=== PATIENT | male | born 1985 | race Caucasian/White ===

== ENCOUNTER 2022-11-30 07:04 | Outpatient (CLI) | payer BC, SELFPAY ==
--- NOTE | 2022-11-30 07:15 | MR_ITS ---
[facility] [address] [facility] [address] Phone:?[phone] Fax:?[phone] Referring Physician Information: Mary Wilde M.D. [id number] [address] Phone:?[phone] Fax:?[phone] Patient:?Hussein Kearns D.O.B:?1985 Sex:?Male Phone:?[phone] [facility] MRN:?[id number] Exam Date:?11/30/2022 EXAM: MRI EXAMINATION OF THE RIGHT ELBOW CLINICAL INFORMATION: Right elbow pain. Concern for possible tendon rupture. TECHNICAL INFORMATION: Coronal STIR. Axial, sagittal and coronal PD and T2- weighted images were acquired. INTERPRETATION: Bones, joint and osteochondral surfaces: No significant elbow joint effusion. No discrete loose body is seen. No evidence for an occult fracture or osseous contusion. No discrete osteochondral lesion is seen. There are no appreciable changes of elbow joint osteoarthritis. No other abnormal marrow edema pattern identified. Tendons: The brachialis and triceps tendon insertions are seen to be intact. Acute or subacute appearance of disruption of the expected biceps brachii tendon insertion. As seen on series 7 image 9 as well as series 3 images 10 through 16, the torn tendon fibers are retracted into a position 1.5 cm distal to the level of the elbow joint line. Moderate soft tissue fluid and edema signal to indicate associated hemorrhage and inflammation. The common flexor origin at the medial humeral epicondyle is intact. The common extensor origin at the lateral humeral epicondyle is intact without tear or significant tendinopathy. Ligaments: The ulnar collateral ligament is intact without evidence of acute sprain or tear. The radial collateral and lateral ulnar collateral ligaments appear grossly intact. Nerves: The ulnar nerve appears unremarkable coursing past the elbow and through the cubital tunnel. CONCLUSION: 1. Acute or subacute injury and full-thickness disruption of the expected insertion of the biceps brachii tendon. Torn tendon fibers are retracted into a position 1.5 cm distal to the level of the elbow joint line. Associated moderate soft tissue hemorrhage and inflammation. 2. No occult fracture, osseous contusion or osteochondral lesion. 3. No joint effusion or loose body. 4. No other evidence for tendon pathology. KES Electronically signed on 11/30/2022 1:26:00 PM by Paras Junior M.D.
== END 2022-11-30 07:05 | disposition home or self-care (01) ==
LOC: MRI 07:07
PROVIDERS: PCP Physician Assistant Medical; Visit Provider Emergency Medicine
DX: M25.521 Pain in right elbow (principal)
CPT/HCPCS: 73221

== ENCOUNTER 2022-12-07 06:11 | Day surgery (SDC) | payer BC, SELFPAY ==
[2022-12-07] VITALS (8 sets, daily range): BP systolic 101–135; BP diastolic 73–88; PULSE 66–77; RESP 16; TEMP 36.1–36.7; O2SAT 94–97; BMI 46.3
[2022-12-07] MEDS: LACTATED RINGERS 1000 ML 1,000 ML 100 ML IV ×2 (06:30→08:00)
[2022-12-07] MEDS: SODIUM CHLORIDE 0.9 % (FLUSH) 10 ML SYRINGE IVF (07:10)
[2022-12-07] MEDS: fentaNYL 100 MCG/2 ML inj IVP (07:30)
[2022-12-07] MEDS: MIDAZOLAM HCL 1 MG/ML inj IVP (07:30)
--- NOTE | 2022-12-07 07:30 | W.PM.H&PU ---
History & Physical Update History & Physical Update H&P Reviewed and patient assessed: No changes noted
--- NOTE | 2022-12-07 07:37 | SUR.PREOP ---
TIME?OUT:?0729 PT/RN/MDA?VERIFICATION?OF?SURGICAL?SITE,?PROCEDURE,?AND?CONSENT OBTAINED?PRIOR?TO?INVASIVE?PROCEDURE.
[2022-12-07] MEDS: CEFAZOLIN 2 GM INJ IVP (07:40)
--- NOTE | 2022-12-07 07:52 | CRLHL7_ITS ---
For Patients: As a result of the Century Cures Act, medical imaging exams and procedure reports are released immediately into your electronic medical record. You may view this report before your referring provider. If you have questions, please contact your health care provider. INDICATION: Right distal biceps repair. TECHNIQUE: Fluoroscopically guided intraoperative evaluation of the right elbow. FINDINGS: Two portable intraoperative images of the right elbow were performed. Postsurgical change proximal radius. 5.5 seconds fluoroscopy time utilized. IMPRESSION: 5.5 seconds fluoroscopy time utilized intraoperatively. Dictated by Corbin Laughlin MD @ 12/07/2022 9:40:54 AM (Electronically Signed)
--- NOTE | 2022-12-07 08:04 | W.PM.NB ---
Nerve Block Nerve Block Time Seen by Provider: 07:30 Date Seen: 12/07/22 Type of block requested by surgeon for post-operative analgesia: axillary Side: right Time out performed: Yes Verification of patient name: Yes Verification of date of : Yes Site marking: site marked Name of person performing procedure: Romulo Continuous monitoring Was continuous monitoring of O2 sat, B/P, monitor car operator, recorded every 15 minutes?: Yes Procedure Checklist: sterile prep, needles and gloves Ultrasound guided. Images saved: Yes Medications given in 5ml increments after negative aspiration: Ropivicaine %: 0.5 mL: 30 Needle gauge: 22 Patient tolerated procedure well: Yes Additional comments: Needle noted adjacent to nerve Block Charges Block Charge (with Pro Fee): Brachial Plexus Use of Ultrasound Machine for Block: Yes- US Guidance/pain block
--- NOTE | 2022-12-07 08:04 | W.ANESCHARGE ---
Anesthesia Charges Start Date/Time Anesthesia Start Date: 12/07/22 Anesthesia Start Time: 07:35 Stop Date/Time Anesthesia Stop Date: 12/07/22 Anesthesia Stop Time: 09:25
--- NOTE | 2022-12-07 09:11 | P.ORPRC_ITS ---
Procedure Note Date of procedure: 12/07/22 Procedure: PREOPERATIVE DIAGNOSIS: 1. Right distal biceps rupture POSTOPERATIVE DIAGNOSIS: 1. Right distal biceps rupture PROCEDURE: 1. Right distal biceps repair SURGEON: Bunny Reyes MD. SIGNAL OPERATOR TECHNICAL: MARIO Carrillo - Of note, an assistant men's lacrosse coach was critical for this case to aid in patient positioning, tissue retraction, limb manipulation/positioning, and closure. ANESTHESIA: General anesthetic IMPLANTS: Arthrex biceps button implant and a 7 mm x 10 mm peek tenodesis screw TOURNIQUET: 0 minutes ESTIMATED BLOOD LOSS: < 5 mL COMPLICATIONS: None evident INDICATIONS: The patient is a pleasant 37-year-old male who sustained two injuries to his distal biceps tendon over the past month. He subsequent MRI which revealed an acute/subacute distal biceps disruption. Distal biceps was noted to be retracted approximately 1.5 cm. Recommendation was subsequently made for surgical repair to restore function of the biceps. Prior to surgery risks and benefits of procedure discussed with patient all questions were answered and informed consent was obtained. DESCRIPTION OF PROCEDURE: Following a thorough discussion of risks, benefits, and alternatives consent was obtained and the operative site was marked. The patient was brought to the operating room and placed supine on the operating table. Induction of anesthesia was undertaken. IV Ancef was administered within 1 hr of incision preoperatively for prophylaxis. A tourniquet was placed on the patient's right upper arm but was not utilized during the course of procedure. Right upper extremity is then prepped and draped in usual sterile fashion. A surgical time-out was performed confirming patient identity surgical site and surgical procedure. Longitudinal incision measuring 3-4 cm was made on the proximal volar forearm distal to the elbow flexion crease along the ulnar border of the brachioradialis. Blunt dissection was used to dissect through the subcutaneous tissues. Electrocautery was used to achieve hemostasis. The distal biceps tendon was identified and was dissected away from surrounding soft tissues. The end of the tendon was debrided. A #2 FiberLoop suture was then used to whipstitch the distal end of the biceps tendon. After whipstitch was complete, the tendon was able to pass through the 7 mm sizing block. Elbow was then placed in full extension and full supination. Deep dissection was used to expose the radial tuberosity. Radial tuberosity was identified and cleared of soft tissue. A 3.2 mm bicortical tunnel was drilled in the radial tuberosity. Prior to drilling, fluoroscopic imaging was used to confirm drill placement in the radial tuberosity. An 8 mm unicortical tunnel was then drilled over the 3.2 mm guide pin. Guide pin and Reamer were removed. Wound was irrigated with normal saline and bone debris was removed. Sutures were then passed through the biceps button implant. The button commission for the blind director was used to pass the implant through both cortices of the radial tuberosity and button was flipped and seated on the cortical bone. Fluoroscopic imaging was used to confirm button deployment. Suture ends were then tensioned docking the tendon into the unicortical tunnel. Once the tendon was fully seated, a [employer] suture Passer was used to pass 1 limb of suture through the tendon, and a knot was tied. A 7 mm by 10 mm peek tenodesis screw was loaded over 1 suture limb and was inserted on the radial side of the bone tunnel. Once the tenodesis screw was fully seated, sutures were tied over the top of the screw and remnant suture was cut and removed. Final fluoroscopic images were obtained confirming anatomic location of the biceps button. Wound was again irrigated with normal saline. Wound was then closed with 2-0 Vicryl, 2-0 Stratafix, and 4-0 Stratafix suture followed by Exofin. Sterile dressings were applied followed by a well-padded long-arm posterior splint. Patient was awoken from anesthesia and transferred to the PACU in stable condition. POSTOPERATIVE PLAN: 1. No lifting, pushing, or pulling with the right upper extremity 2. Keep splint clean and dry, wear sling when ambulating as needed for comfort 3. Ice and elevation for pain and swelling 4. [place] or [id number] pain medications as needed for pain control. 5. Follow-up in Orthopedic Clinic in 10-14 days for wound check and splint removal. 6. Will initiate formal physical therapy per the distal biceps tendon repair rehabilitation protocol in 2 weeks.
--- NOTE | 2022-12-07 09:25 | W.ANESCHARGE ---
Anesthesia Charges Start Date/Time Anesthesia Start Date: 12/07/22 Anesthesia Start Time: 07:35 Stop Date/Time Anesthesia Stop Date: 12/07/22 Anesthesia Stop Time: 09:25
== END 2022-12-07 11:12 | disposition home or self-care (01) ==
PROVIDERS: PCP Physician Assistant Medical; Visit Provider Orthopaedic Surgery
PROC: (CPT 24341; principal; 2022-12-07 07:30)
DX: S46.211A Strain of muscle, fascia and tendon of other parts of biceps, right arm, initial encounter (principal); G89.18 Other acute postprocedural pain
CPT/HCPCS: 24341; 01716; 64415; 73070; 76942; A4580; C1713; J0690; J1100; J1885; J2250; J2405; J2704; J2795; J3010; J3490; J7120

== ENCOUNTER 2023-06-07 08:15 | Outpatient (RCR) | payer BC, SELFPAY | END 2023-09-06 11:34 | disposition home or self-care (01) | PROVIDERS: PCP Physician Assistant Medical; Visit Provider Orthopaedic Surgery | DX: S46.211A Strain of muscle, fascia and tendon of other parts of biceps, right arm, initial encounter (principal); Z98.890 Other specified postprocedural states; M25.521 Pain in right elbow; Z74.09 Other reduced mobility; Z51.89 Encounter for other specified aftercare | CPT/HCPCS: 97110; 97140; 97162 ==

== ENCOUNTER 2024-02-06 09:25 | Outpatient (CLI) | payer BC, SELFPAY | END 2024-02-06 09:26 | disposition home or self-care (01) | LOC: NFLDREF 02-09 07:01 | PROVIDERS: PCP Physician Assistant Medical; Referring Provider Physician Assistant Medical; Visit Provider Physician Assistant Medical | DX: Z00.00 Encounter for general adult medical examination without abnormal findings (principal); R73.03 Prediabetes; I10 Essential (primary) hypertension; L71.9 Rosacea, unspecified; E55.9 Vitamin D deficiency, unspecified; E66.9 Obesity, unspecified; Z13.1 Encounter for screening for diabetes mellitus; Z13.6 Encounter for screening for cardiovascular disorders | CPT/HCPCS: 80053; 80061 ==

== ENCOUNTER 2024-08-05 08:45 | Outpatient (CLI) | payer BC, SELFPAY | END 2024-08-05 08:46 | disposition home or self-care (01) | PROVIDERS: PCP Physician Assistant Medical; Visit Provider Physician Assistant Medical | DX: I10 Essential (primary) hypertension (principal); E55.9 Vitamin D deficiency, unspecified; R73.03 Prediabetes; E66.01 Morbid (severe) obesity due to excess calories; R74.01 Elevation of levels of liver transaminase levels | CPT/HCPCS: 80053; 82306 ==

== ENCOUNTER 2024-08-28 08:03 | Outpatient (CLI) | payer BC, SELFPAY ==
--- NOTE | 2024-08-28 08:15 | MR_ITS ---
EXAM: MRI of the RIGHT KNEE, without contrast CLINICAL HISTORY: Ongoing right knee pain. Evaluate for medial meniscal tear and pes anserine bursitis. Plain radiographs 08/20/2024. COMPARISONS: None available. TECHNICAL: MR sequences of the right knee: sagittals: PD, T2 FS coronals: PD, STIR, T2 axials: PD, T2 FS CONTRAST: None SEDATION: None FINDINGS: Patellofemoral joint: Cartilage: Intact. Retinacula: The medial and lateral retinacula are intact. Fat pads: The infrapatellar, quadriceps, and prefemoral fat pads are unremarkable. Knee joint: Effusion: Trace right knee joint effusion. Popliteal cyst: None. Intra-articular bodies: None. Posteromedial corner: The semimembranosus and pes anserine tendons are intact. Medial compartment: Medial meniscus: 1.0 cm ill-defined free edge and inferiorly surfacing tear from the body through body/posterior horn junction of the medial meniscus with associated marked reactive bone marrow edema within the adjacent portion of the medial tibial plateau. Cartilage: Intact. Lateral compartment: Lateral meniscus: Intact. Cartilage: Intact. Ligaments: Anterior cruciate ligament: Intact. Posterior cruciate ligament: Intact. Medial collateral ligament: Intact. Posterior oblique ligament: Intact. Fibular collateral ligament: Intact. Posterolateral corner: The distal biceps femoris tendon, iliotibial band, popliteus tendon, popliteus muscle, popliteofibular ligament, and arcuate ligament are intact. Extensor mechanism: Patellar tendon: Intact. Quadriceps tendon: Intact. IMPRESSION: 1. 1.0 cm ill-defined free edge and inferiorly surfacing tear from the body through body/posterior horn junction of the medial meniscus with associated marked reactive bone marrow edema within the adjacent portion of the medial tibial plateau. 2. Trace right knee joint effusion. 3. No ligamentous, lateral meniscal, or chondral pathology of the right knee. RCB Electronically signed on 08/28/2024 2:17:00 PM by Sandeep Richter M.D.
== END 2024-08-28 08:04 | disposition home or self-care (01) ==
LOC: MRI 08:04
PROVIDERS: PCP Physician Assistant Medical; Visit Provider Physician Assistant Surgical
DX: M25.561 Pain in right knee (principal); S83.249A Other tear of medial meniscus, current injury, unspecified knee, initial encounter; M25.461 Effusion, right knee; M70.50 Other bursitis of knee, unspecified knee
CPT/HCPCS: 73721